=== PATIENT | male | born 1995 | race Caucasian/White ===

== ENCOUNTER 2019-08-04 08:23 | Emergency (ER) | payer MEDICAID, OTHER ==
[~2019-08-04] VITALS: Ht 167.6 cm; Wt 59.0 kg
[2019-08-04 08:30] VITALS: BP 105/60
== END 2019-08-04 12:28 | disposition left against medical advice (07) ==
LOC: ER 08:23 → EDBD 08:23 → ER 12:28
DX: T50.7X1A Poisoning by analeptics and opioid receptor antagonists, accidental (unintentional), initial encounter (principal); Z53.21 Procedure and treatment not carried out due to patient leaving prior to being seen by health care provider; Y92.89 Other specified places as the place of occurrence of the external cause
CPT/HCPCS: 93005